=== PATIENT | male | born 1980 | race Caucasian/White ===

== ENCOUNTER 2016-06-30 09:07 | Day surgery (SDC) | payer OTHER ==
[2016-06-28 14:57] VITALS: BMI 25.7
[~2016-06-30 09:07] MED LIST: LACTATED RINGERS 1,000 ML IV SCH; LIDOCAINE 1% 20 ML VIAL (10MG/ML) FOR IV START INTRADERMA PRN
[2016-06-30 09:36] VITALS: RESP 18; TEMP 97.6
[2016-06-30] MEDS ORDERED: LIDOCAINE 1% INJ 10MG/ML (20 ML MDV) ONE (09:51)
[2016-06-30] MEDS ORDERED: PROPOFOL 10 MG/ML 20 ML VIAL IV ONE (09:51)
--- NOTE | 2016-06-30 10:19 | P.PCN ---
Date of Procedure: 06/30/16 Procedure(s) Performed: Procedure: Total colonoscopy. Preoperative diagnosis: Abdominal pain and change in bowel habits. Postoperative diagnosis: 1. Mild sigmoid diverticulosis with no evidence of acute diverticulitis or strictures. 2. Colon and terminal ileum show no evidence of inflammatory bowel disease. Preparation: HalfLytely prep. Sedation: Was provided by anesthesia. Brief clinical history: The patient is a 36-year-old male who I have evaluated in the office regarding history of loose stools and ongoing issues with pain and swelling felt around the left upper quadrant. The patient had a CT of the abdomen in February of last year when his symptoms worsened that showed thickening in the transverse and descending colon. He apparently has always had loose stools over the years but it was more frequent at that time. This evaluation is to assess for inflammatory bowel disease. Procedure: With the patient on his left lateral decubitus position and after informed consent and adequate sedation, the perianal area was inspected and it did not show any fissures or fistulas. There were no masses felt on digital rectal examination. The Olympus CFQ 160L video colonoscope was then inserted in the rectum in the usual fashion and advanced to the cecum. I intubated the ileocecal valve and examined the terminal ileum. Terminal ileum and colon did not show any evidence of edema, erythema, friability, ulceration, exudation or spontaneous bleeding. No polyps or tumors were seen. There were few scattered diverticular orifices seen in the distal sigmoid with no evidence of acute diverticulitis or strictures. No polyps or tumors were seen. I retroflexed the endoscope in the rectum before the endoscope was withdrawn. The patient tolerated the procedure well. Plan: The patient was reassured. Discussed dietary measures. Will continue symptomatic treatment as needed and further plans based on his course. I will keep you updated on his progress.
[2016-06-30 10:40] VITALS: BP 126/65; PULSE 63
== END 2016-06-30 10:55 | disposition home or self-care (01) ==
LOC: ORWHC2ENDO 09:07
DX: K57.30 Diverticulosis of large intestine without perforation or abscess without bleeding (principal); E78.5 Hyperlipidemia, unspecified; J45.909 Unspecified asthma, uncomplicated; Z79.899 Other long term (current) drug therapy
CPT/HCPCS: 45378; J2001; J2704; 99153

== ENCOUNTER → 2018-12-28 | Day surgery (SDC) | payer OTHER ==
[2018-12-27 08:25] VITALS: BMI 27.4
[~2018-12-28] MED LIST changes: -LIDOCAINE 1% 20 ML VIAL (10MG/ML) FOR IV START INTRADERMA PRN; +LIDOCAINE 1% INJ 10MG/ML (20 ML MDV) ONE; +PROPOFOL 10 MG/ML 20 ML VIAL IV ONE
--- NOTE | 2018-12-28 10:54 | P.GSHP ---
History of Present Illness H&P Date: 12/28/18 Chief Complaint: Dysphagia, GERD This is a 38-year-old male who presents today for EGD. He's had some complaints of dysphagia and GERD. Past Medical History Past Medical History: Asthma, GERD/Reflux, Hyperlipidemia Additional Past Medical History / Comment(s): diverticulu History of Any Multi-Drug Resistant Organisms: None Reported Past Surgical History: Appendectomy Additional Past Surgical History / Comment(s): colonoscopy Past Anesthesia/Blood Transfusion Reactions: No Reported Reaction Smoking Status: Never smoker - Past Family History Mother Family Medical History: No Reported History Medications and Allergies Home Medications Medication Instructions Recorded Confirmed Type Albuterol Inhaler [Ventolin Hfa 1 - 2 puff INHALATION Q6HR PRN 06/28/16 12/28/18 History Inhaler] Simvastatin [Zocor] 20 mg PO HS 06/28/16 12/28/18 History Pantoprazole [Protonix] 40 mg PO DAILY 12/27/18 12/28/18 History Allergies Allergy/AdvReac Type Severity Reaction Status Date / Time No Known Allergies Allergy Verified 12/28/18 10:34 Surgical - Exam - General well developed, well nourished, no distress - Eyes PERRL - ENT normal pinna - Neck no masses - Respiratory normal expansion - Cardiovascular Rhythm: regular - Abdomen Abdomen: soft, non tender Assessment and Plan Assessment: Dysphagia, GERD. We'll perform EGD.
[2018-12-28 10:56] VITALS: TEMP 97.9
[2018-12-28 11:00] LABS: Glucose,Whole Blood 97 mg/dL (75-99)
--- NOTE | 2018-12-28 11:08 | P.OP ---
Date of Procedure: 12/28/18 Preoperative Diagnosis: Dysphagia Postoperative Diagnosis: Antral gastritis Procedure(s) Performed: EGD Anesthesia: MAC Surgeon: Eros Tomas Pathology: other (Antrum) Condition: stable Disposition: PACU Description of Procedure: The patient's placed on the endoscopy table in the lateral position. He received IV sedation. The gastroscope was placed oropharynx and passed into the esophagus and into the stomach. Scope was then placed through the pylorus. The first and second portion of the duodenum appeared normal. Scope was then brought back the antrum this was mildly inflamed. A biopsies performed. Scope was then retroflexed and the remainder the stomach appeared normal. There was no significant hiatal hernia. The GE junction was at 40 cms. The distal esophagus appeared normal. The proximal esophagus appeared normal. Scope was withdrawn for patient.
[2018-12-28 11:12] VITALS: RESP 17
[2018-12-28 11:29] VITALS: BP 120/70; PULSE 70
== END | disposition home or self-care (01) ==
LOC: ORWHC2ENDO 10:11
PROVIDERS: ATTEND Surgery
DX: K29.50 Unspecified chronic gastritis without bleeding (principal); R13.10 Dysphagia, unspecified; K21.9 Gastro-esophageal reflux disease without esophagitis; K57.92 Diverticulitis of intestine, part unspecified, without perforation or abscess without bleeding; J45.909 Unspecified asthma, uncomplicated; E78.5 Hyperlipidemia, unspecified; R00.2 Palpitations; Z79.899 Other long term (current) drug therapy
CPT/HCPCS: 43239; J2001; J2704; 88305

== ENCOUNTER → 2019-02-07 | Outpatient (CLI) | payer OTHER ==
--- NOTE | 2019-02-07 14:35 | CT ---
EXAMINATION TYPE: CT soft tissue neck w con DATE OF EXAM: 02/07/2019 HISTORY: Left sided neck pain. BB placed on region of interest. COMPARISON: NONE CT DLP: 542 mGycm. Automated Exposure Control for Dose Reduction was Utilized. TECHNIQUE: CT scan of the neck is performed with IV Contrast, patient injected with 100ml mL of Isov ue 300, axial images are obtained, coronal and sagittal reformatted images are reviewed. FINDINGS: Airway: No gross abnormality seen. Parotid/submandibular glands: No gross abnormality seen. Carotid/Vascular Structures: No significant plaque or stenosis. Osseous Structures: No significant abnormality seen. Other: There is metallic BB over the left neck at level of hyoid bone axial image 36 corresponds to p alpable abnormality. There is prominent draining external vein at this level. There is some adjacent subcentimeter lymph nodes. There is no suspicious solid or cystic mass or fluid collection. IMPRESSION: As above. No large suspicious mass or abnormal adenopathy noted.
== END | disposition home or self-care (01) ==
LOC: RADCTMAIN 13:53
PROVIDERS: ATTEND Otolaryngology
DX: M54.2 Cervicalgia (principal)
CPT/HCPCS: 70491; Q9967